=== PATIENT | female | born 1940 | race Caucasian/White ===

== ENCOUNTER 2019-07-17 14:40 | Outpatient (CLI) | payer MEDICARE, OTHER ==
--- NOTE | 2019-07-17 15:53 | ULT ---
ULTRSOUND NECK SOFT TISSUES: INDICATION: Palpable abnormality in the neck. COMPARISON: None. 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 The patient has a palpable abnormality in the region of the right thyroid lobe. There is a 2.4 x 1.2 cm mixed cystic and solid mass within the ri ght thyroid lobe without associated calcifications. This mass is well circumscribed. The internal s olid components are slightly hyperechoic. No additional focal lesion is evident. No lymphadenopathy is noted. IMPRESSION: TIRADS 2 lesion of the right thyroid lobe. No additional sonographic followup is recommended. No fisher spicious lymphadenopathy or additional mass demonstrated. POS: [facility]
== END 2019-07-17 14:41 | disposition home or self-care (01) ==
LOC: SCSULT 14:40
PROVIDERS: ATTEND Internal Medicine
DX: R22.1 Localized swelling, mass and lump, neck (principal); I10 Essential (primary) hypertension; E07.89 Other specified disorders of thyroid
CPT/HCPCS: 76536

== ENCOUNTER 2020-04-03 06:48 | Outpatient (CLI) | payer MEDICARE, OTHER ==
[2020-04-04 11:06] LABS: SARS-CoV-2 MS2 Positive; SARS-CoV-2 N Gene Negative; SARS-CoV-2 S Gene Negative; SARS-CoV-2 orf1ab Negative
== END 2020-04-03 06:49 | disposition home or self-care (01) ==
LOC: LABBT 06:48
PROVIDERS: ATTEND Ophthalmology Retina Specialist
DX: Z01.812 Encounter for preprocedural laboratory examination (principal); Z11.59 Encounter for screening for other viral diseases
CPT/HCPCS: 87635; U0003

== ENCOUNTER 2020-04-08 09:53 | Day surgery (SDC) | payer MEDICARE, OTHER ==
[2020-04-03 14:01] VITALS: BMI 25.4
[~2020-04-08 09:53] MED LIST: Bupivacaine PF 0.75% SDV 10 ML ONE; CEFAZOLIN 1 GM VIAL ONE; EPINEPHrine 0.3 MG in Ophthalmic Irrigation Solution 500 ML IRR SCH; Fentanyl 100 MCG/2 ML VIAL ONE; Lidocaine 1% PF 5 ML VIAL ONE; Lidocaine 4% PF 5 ML AMP ONE; Midazolam HCl 2 mg/2 ml Vial ONE; PROPOFOL 200 MG/20 ML VIAL ONE; Tobramycin/Dexamethasone Ophth Oint 3.5 GM TUBE ONE; Triamcinolone 40 MG/ML VIAL ONE
[2020-04-08] MEDS ORDERED: Cyclopentolate 1% Opth Drop 2 ML BOT ONE (10:26)
[2020-04-08] MEDS ORDERED: Phenylephrine 2.5% Ophth Soln 5 ML BOT ONE (10:26)
--- NOTE | 2020-04-08 19:20 | OP ---
DATE OF PROCEDURE: 04/08/2020 PRINCIPAL PREOPERATIVE DIAGNOSIS: Macula-off rhegmatogenous retinal detachment, left eye. POSTOPERATIVE DIAGNOSIS: Macula-off rhegmatogenous retinal detachment, left eye. PROCEDURES PERFORMED: 1. 25-gauge pars plana vitrectomy, left eye. 2. Retinal detachment repair, left eye. 3. Endolaser, left eye. 4. 15% SF6 fill, left eye. ESTIMATED BLOOD LOSS: None. SPECIMENS REMOVED: None. COMPLICATIONS: None. ANESTHESIA: MAC with sub-Tenon's block. DESCRIPTION OF PROCEDURE: The patient was identified in the preoperative holding area. The correct eye being the left eye was marked for surgery. The patient was taken to the operating room, where MAC anesthesia was induced. The left eye was then prepped and draped in usual sterile ophthalmic fashion for surgery. A wire-clip lid speculum was placed. An inferonasal conjunctival peritomy was fashioned with Howard scissors for administration of sub-Tenon's block. The block consisted of 1:1 ratio of 4% lidocaine and 0.75% Marcaine. A total of 5 mL was administered. A standard 25-gauge pars plana vitrectomy platform was fashioned with trocars placed approximately 3.5 mm from the limbus. The infusion was noted to be within the vitreous cavity prior to being turned on to an infusion pressure of 30 mmHg. The light pipe and microvitrector were introduced in the eye under visualization of the BIOM viewing system. A macula-off rhegmatogenous retinal detachment was noted from approximately 1 o'clock to 6 o'clock with the horseshoe retinal tear noted at approximately 1:30. A careful core and peripheral shave vitrectomy were performed with the assistance of scleral depression. Great care was taken to relieve all traction off the aforementioned defect. Following completion of vitrectomy, the defect was marked with endo cautery followed by creation of a posterior drainage retinotomy superior to the superotemporal arcade. This was made with the endo cautery followed by opening with a flute needle. An air-fluid exchange was performed, which allowed for complete flattening of the retina. Endolaser was used to provide barricade around the retinotomy site as well as around the defect. Additional laser was placed near the ora geine in the area of the retinal detachment. Following completion of laser, the flute needle was reintroduced into the eye to remove the residual subretinal fluid. An air-gas exchange was subsequently performed with 15% SF6. The cannulas were sequentially removed with suturing required for the supratemporal and supranasal sclerotomies with 8-0 Vicryl suture. Following suturing, all sclerotomies were noted to be gas tight. Subconjunctival Ancef and Kenalog were injected. The wire-clip lid speculum was removed followed by application of TobraDex ophthalmic ointment and a light patch and shield. The patient tolerated the procedure well and was taken to outpatient recovery in good condition. Job ID: [id number]
== END 2020-04-08 13:39 | disposition home or self-care (01) ==
LOC: SDC 09:53
PROVIDERS: ATTEND Ophthalmology Retina Specialist
PROC: 08T53ZZ Resection of Left Vitreous, Percutaneous Approach (ICD-10-PCS; principal; 2020-04-08)
PROC: 08QF3ZZ Repair Left Retina, Percutaneous Approach (ICD-10-PCS; 2020-04-08)
DX: H33.022 Retinal detachment with multiple breaks, left eye (principal); E89.0 Postprocedural hypothyroidism; I10 Essential (primary) hypertension; E78.5 Hyperlipidemia, unspecified; I48.91 Unspecified atrial fibrillation; Z79.01 Long term (current) use of anticoagulants; Z79.899 Other long term (current) drug therapy; Z95.0 Presence of cardiac pacemaker
CPT/HCPCS: 67025; J0171; J0690; J2001; J2250; J2704; J3010; J3301; J3490

== ENCOUNTER 2023-02-03 10:43 | Outpatient (CLI) | payer MEDICARE, OTHER ==
[2023-02-03] MEDS ORDERED: Iopamidol 370 76% 100 ML VIAL ONE (11:09)
== END 2023-02-03 10:44 | disposition home or self-care (01) ==
LOC: CT 10:43
PROVIDERS: ATTEND Internal Medicine
DX: M79.662 Pain in left lower leg (principal); R20.9 Unspecified disturbances of skin sensation; R09.89 Other specified symptoms and signs involving the circulatory and respiratory systems; I74.3 Embolism and thrombosis of arteries of the lower extremities
CPT/HCPCS: 82565; Q9967